=== PATIENT | female | born 1970 | race Caucasian/White ===

== ENCOUNTER 2016-05-02 05:11 | Emergency (ER) | payer OTHER ==
[~2016-05-02] VITALS: Ht 167.6 cm; Wt 111.1 kg
[~2016-05-02 05:11] MED LIST: AUGMENTIN 875 M1 TAB PO
[2016-05-02 05:26] VITALS: BP 171/90
--- NOTE | 2016-05-02 05:33 | ED INFLUENZA/URI COMPLAINT ---
History of Present Illness General Chief Complaint: General Adult Stated Complaint: SINUS INFECTION? [id number] Source: patient Exam Limitations: no limitations Vital Signs & Intake/Output Vital Signs & Intake/Output Vital Signs Date Time Temp Pulse Resp B/P Pulse O2 O2 Flow FiO2 Ox Delivery Rate 05/02 0526 79 18 171/90 98 Room Air Allergies Coded Allergies: MDX - SULFA (sulfonamide) (SULFA (SULFONAMIDE)) (Mild, ITCHING 10/23/14) Reconcile Medications Amoxicillin/Potassium Clav (Augmentin 875-125 Tablet) 875 MG-125 MG TABLET 1 TAB PO BID sinusitis Prednisone 50 MG TABLET 1 TAB PO DAILY sinusitis Triage Note: PT FROM HOME C/O SINUS CONGESTION. PT STATES " I WOKE UP LAST MONDAY WITH CHEST CONGESTION A NON PRODUCTIVE COUGH, MY HEAD FEELS LIKE ITS GOING TO EXPLODE, MY CHEEKS AND NOSE/FOREHEAD ALL HURT AND FEEL HEAVY". PT IN TRIAGE WITH NO DISTRESS. AWAITING PROVIDER EVAL Triage Nurses Notes Reviewed? yes Onset: Gradual Duration: week(s):, getting worse Timing: recent history Severity: moderate Prior Episodes/Possible Cause: frequent episodes Modifying Factors: Improves With: medication. Associated Symptoms: nasal congestion, nasal drainage, sinus infection HPI: 46 yo woman presents with sinus pressure, increased drainage, productive cough, bilateral ear pain x 1 week. "It feels just like my sinus infections... I get about 4 a year for 30 years... My sinuses just don't drain well." She is afebrile, has no dyspnea or wheeze, and is otherwise well. Past History Travel History Traveled to [place] past 21 day No Medical History Any Pertinent Medical History? see below for history EENT: SINUS INFECTIONS Surgical History Surgical History: , RT ELBOW SX Psychosocial History What is your primary language French Tobacco Use: Never used ETOH Use: denies use Illicit Drug Use: denies illicit drug use Family History Hx Contributory? No Review of Systems Review of Systems Constitutional: Reports: no symptoms. EENTM: Reports: no symptoms. Respiratory: Reports: no symptoms. Cardiovascular: Reports: no symptoms. GI: Reports: no symptoms. Genitourinary: Reports: no symptoms. Musculoskeletal: Reports: no symptoms. Skin: Reports: no symptoms. Neurological/Psychological: Reports: no symptoms. Hematologic/Endocrine: Reports: no symptoms. Immunologic/Allergic: Reports: no symptoms. All Other Systems: Reviewed and Negative Physical Exam Physical Exam General Appearance: well developed/nourished, mild distress Head: atraumatic, normal appearance Eyes: Bilateral: normal appearance. Ears, Nose, Throat: normal ENT inspection, moist mucous membrane, Tympanic normal, nasal congestion, nasal drainage Neck: normal inspection, supple Respiratory: rhonchi Cardiovascular: regular rate/rhythm Gastrointestinal: normal bowel sounds, soft, non-tender, no organomegaly Back: normal inspection, normal range of motion Extremities: normal inspection Neurologic/Psych: no motor/sensory deficits, awake, alert, oriented x 3 Skin: intact, normal color, warm/dry Core Measures Severe Sepsis Present: No Septic Shock Present: No Progress Differential Diagnosis: otitis, pharyngitis, sinusitis Plan of Care: Current Medications Sig/Uma Start time Last Medication Dose Stop Time Status Admin Amoxicillin/ 1,000 MG ONCE ONE 05/02 629 UNVr Clavulanate Potassium 05/02 630 (Augmentin) Ibuprofen 800 MG ONCE ONE 05/02 629 UNVr (Motrin) 05/02 630 Initial ED EKG: none Departure Departure Disposition: HOME OR SELF CARE Condition: Stable Clinical Impression Primary Impression: Sinusitis Referrals: PATIENT HAS NO PRIMARY CARE DR (PCP/Family) Departure Forms: Customer Survey General Discharge Information Prescriptions: Current Visit Scripts Amoxicillin/Potassium Clav (Augmentin 875-125 Tablet) 1 TAB PO BID #20 TAB Prednisone 1 TAB PO DAILY #5 TAB Comments stable vitals... will treat with abx and steroids... advocated close follow up.
[2016-05-02] MEDS ORDERED: PREDNISONE50 M1 PO (06:18)
[2016-05-02] MEDS ORDERED: AUGMENTIN 875-1 EACH PO (06:18)
== END 2016-05-02 06:24 ==
LOC: ERH 05:11
DX: J32.9 Chronic sinusitis, unspecified (principal)
CPT/HCPCS: J3490